=== PATIENT | female | born 1990 | race Hispanic/Latino ===

== ENCOUNTER 2018-04-02 21:45 | Emergency (ER) | payer BC ==
[2018-04-02 21:51] VITALS: BP 125/75; PULSE 73; RESP 16; TEMP 98.5; O2SAT 99
--- NOTE | 2018-04-02 22:04 | ED PDOC ---
HPI: General Adult Time Seen by Provider: 04/02/18 22:01 Chief Complaint (Nursing): ENT Problem Chief Complaint (Provider): ENT Problem History Per: Patient History/Exam Limitations: no limitations Onset/Duration Of Symptoms: Days (x2) Additional Complaint(s): Patient is a 27 y/o female who is complaining of left ear pain and pressure for the past x2 days. Patient has no other symptoms. Past Medical History Reviewed: Nursing Documentation, Vital Signs Vital Signs: Last Vital Signs Temp 98.5 F 04/02/18 21:48 Pulse 73 04/02/18 21:48 Resp 16 04/02/18 21:48 BP 125/75 04/02/18 21:48 Pulse Ox 99 04/02/18 21:48 - Medical History PMH: No Chronic Diseases - Surgical History Surgical History: No Surg Hx - Family History Family History: States: Unknown Family Hx - Home Medications Home Medications: Ambulatory Orders Medication Instructions Recorded Amoxicillin/Clavulanate [Augmentin 1 tab PO BID #14 tab 04/02/18 875 MG-125 MG] Methylprednisolone [Medrol Dose 4 mg PO DAILY #21 mg 04/02/18 Pack (21 tabs)] - Allergies Allergies/Adverse Reactions: Allergies Allergy/AdvReac Type Severity Reaction Status Date / Time No Known Allergies Allergy Verified 04/02/18 21:50 Review of Systems ROS Statement: Except As Marked, All Systems Reviewed And Found Negative Physical Exam - Reviewed Nursing Documentation Reviewed: Yes Vital Signs Reviewed: Yes - Physical Exam Appears: Positive for: Well, Non-toxic, No Acute Distress Head Exam: Positive for: ATRAUMATIC, NORMAL INSPECTION, NORMOCEPHALIC Skin: Positive for: Normal Color, Warm, DRY Eye Exam: Positive for: EOMI, Normal appearance, PERRL ENT: Positive for: TM Is/Are (left TM is mildly erythematous and bulging) - ECG O2 Sat by Pulse Oximetry: 99 (RA) Pulse Ox Interpretation: Normal Medical Decision Making Medical Decision Making: Time: 2199 Impression: 27 y/o female with ear pain Initial plan: Medrol dose pack and Augmentin Scribe Attestation: Documented by Mario Slater, acting as a scribe for Rocio Valenzuela PA-C Provider Scribe Attestation: All medical record entries made by the Scribe were at my direction and personally dictated by me. I have reviewed the chart and agree that the record accurately reflects my personal performance of the history, physical exam, medical decision making, and the department course for this patient. I have also personally directed, reviewed, and agree with the discharge instructions and disposition. Disposition - Clinical Impression Clinical Impression: Eustachian tube dysfunction, Otalgia - Patient ED Disposition Is Patient to be Admitted: No - Disposition Disposition: Routine/Home Disposition Time: 23:11 Condition: STABLE Prescriptions: Amoxicillin/Clavulanate [Augmentin 875 MG-125 MG] 1 tab PO BID #14 tab Methylprednisolone [Medrol Dose Pack (21 tabs)] 4 mg PO DAILY #21 mg Instructions: Eustachian Tube Problems (DC) Forms: [employer] ([place]ian)
== END 2018-04-02 23:15 | disposition home or self-care (01) ==
LOC: H.ER 21:45
DX: H69.92 Unspecified Eustachian tube disorder, left ear (principal)